=== PATIENT | female | born 1975 | race Caucasian/White ===

== ENCOUNTER 2020-05-14 17:12 | Emergency (ER) | payer OTHER ==
[2020-05-14] MEDS ORDERED: GLUCAGON,HUMAN RECOMB 1 MG INJ SUBCUT ONE (17:34)
--- NOTE | 2020-05-14 17:37 | ER Document Report ---
ED Medical Screen (RME) - General Chief Complaint: Difficulty Swallowing Stated Complaint: FOOD STUCK IN THROAT Time Seen by Provider: 05/14/20 17:29 Notes: Patient is a 44-year-old female who presents to the emergency department with a chief complaint of feeling like a piece of ham is stuck in her throat. She is unsure of whether or not she inhaled a piece of ham or it is stuck in her esophagus. This happened about 3 hours ago. States that she just keeps coughing. Has been able to keep some food down, but still feels like it is "stuck." Exam: Lung sounds clear throughout all lung tellez. We will start with glucagon and sipping diet Pepsi to help possibly get down the piece of ham. I have greeted and performed a rapid initial assessment of this patient. A comprehensive ED assessment and evaluation of the patient, analysis of test results and completion of medical decision making process will be conducted by an additional ED providers. - Related Data Allergies/Adverse Reactions: acetaminophen [From Percocet] Allergy (Verified 05/14/20 17:29) oxycodone [From Percocet] Allergy (Verified 05/14/20 17:29) Physical Exam - Vital signs Vitals: Temp Pulse Resp BP Pulse Ox 98.4 F 86 20 141/94 H 100 05/14/20 17:17 05/14/20 17:17 05/14/20 17:17 05/14/20 17:17 05/14/20 17:17 Course - Vital Signs Vital signs: Temp Pulse Resp BP Pulse Ox 98.4 F 86 20 141/94 H 100 05/14/20 17:17 05/14/20 17:17 05/14/20 17:17 05/14/20 17:17 05/14/20 17:17
--- NOTE | 2020-05-14 18:03 | RADIOLOGY REPORT (SQ) ---
EXAM DESCRIPTION: CHEST 2 VIEWS IMAGES COMPLETED DATE/TIME: 05/14/2020 5:55 pm REASON FOR STUDY: possibly inhaled a piece of ham COMPARISON: None. EXAM PARAMETERS: NUMBER OF VIEWS: two views TECHNIQUE: Digital Frontal and Lateral radiographic views of the chest acquired. RADIATION DOSE: NA LIMITATIONS: none FINDINGS: LUNGS AND PLEURA: No opacities, masses or pneumothorax. No pleural effusion. MEDIASTINUM AND HILAR STRUCTURES: No masses or contour abnormalities. HEART AND VASCULAR STRUCTURES: Heart normal size. No evidence for failure. BONES: No acute findings. HARDWARE: None in the chest. OTHER: No radiopaque foreign object. IMPRESSION: NO ACUTE RADIOGRAPHIC FINDING IN THE CHEST. NO RADIOPAQUE FOREIGN OBJECT. TECHNICAL DOCUMENTATION: JOB ID: [id number] 2010 [employer]- All Rights Reserved Reading location - IP/workstation name: [email or web address]
[2020-05-14 20:48] VITALS: BP 151/90
--- NOTE | 2020-05-14 21:06 | ER Document Report ---
ED ENT - General Chief Complaint: Shortness Of Breath Stated Complaint: FOOD STUCK IN THROAT Time Seen by Provider: 05/14/20 17:29 Primary Care Provider: [facility] [Provider Group] - Follow up as needed [facility] [Provider Group] - Follow up as needed [facility] [Provider Group] - Follow up as needed [facility] [Provider Group] - Follow up as needed SALLY ALVES MD [ACTIVE STAFF] - Follow up as needed Mode of Arrival: Ambulatory Information source: Patient Notes: 44-year-old female presented to ED for complaint of a piece of ham stuck in her throat. She states she was unsure whether the hand was still stuck in her esophagus when she first came in. She stated this happened 3 hours before coming into the emergency room. She was treated with glucagon and Diet Coke before I examined her. She states she no longer felt like the meat was stuck in her throat. She was able to eat crackers and drink juice before discharge. I did go over all the risk for aspiration. I did instruct her that she really needed to follow-up with her senior data mining analyst to find out why she was choking on her meat. Constitutional: Negative for fever. HENT: See above HPI. She states she did have ham stuck in her throat but she no longer had she was able to swallow food and fluids with no difficulty Eyes: Negative for visual changes. Cardiovascular: Negative for chest pain. Respiratory: Negative for shortness of breath. Gastrointestinal: Negative for abdominal pain, vomiting or diarrhea. Genitourinary: Negative for dysuria. Musculoskeletal: Negative for back pain. Skin: Negative for rash. Neurological: Negative for headaches, weakness or numbness. 10 point ROS negative except as marked above and in HPI. VITAL SIGNS: Within normal limits. GENERAL: No acute distress, non-toxic appearance. HEAD: Normal with no signs of head trauma. EYES: PERRLA, EOMI, conjunctiva normal, no discharge. EARS: Hearing grossly intact. NOSE: Normal. THROAT: Oropharynx is normal. NECK: Normal range of motion, no tenderness, supple, no lymphadenopathy, No adenopathy, no JVD. CHEST: Clear breath sounds bilaterally. No wheezes, rales, or rhonchi. CARDIAC: Regular rate and rhythm. S1 and S2, without murmurs, gallops, or rubs. VASCULAR: No Edema. Peripheral pulses normal and equal in all extremities. ABDOMEN: Normal and soft with no tenderness, no masses or pulsatile masses. GASTROINTESTINAL: Bowel sounds normal GENITOURINARY: Normal, No tenderness LYMPATHTIC: No lymphadenopathy noted. MUSCULOSKELETAL: Good range of motion of all major joints. Extremities without clubbing, cyanosis or edema. NEUROLOGICAL: Alert and oriented x 3. No focal sensory or strength deficits. Speech normal. Follows commands appropriately. PSYCHIATRIC: Normal Affect, judgement and mood. SKIN: Normal appearance with no rashes or lesions. - HPI Patient complains to provider of: Other - States she had food stuck in her throat earlier Onset: This evening Onset/Duration: Gone Severity: None Pain Level: Denies Associated symptoms: Sore throat Similar symptoms previously: No Recently seen / treated by doctor: No - Related Data Allergies/Adverse Reactions: acetaminophen [From Percocet] Allergy (Verified 05/14/20 17:29) oxycodone [From Percocet] Allergy (Verified 05/14/20 17:29) Past Medical History - General Information source: Patient - Social History Smoking Status: Current Every Day Smoker Cigarette use (# per day): Yes - Once again a day Smoking Education Provided: Yes - 2 minutes Frequency of alcohol use: None Drug Abuse: Marijuana Family History: Reviewed & Not Pertinent Patient has suicidal ideation: No Patient has homicidal ideation: No - Past Medical History Cardiac Medical History: Reports: None Pulmonary Medical History: Reports: Hx Asthma, Hx Bronchitis, Hx Pneumonia EENT Medical History: Reports: None Neurological Medical History: Reports: Hx Migraine Endocrine Medical History: Reports: None Renal/ Medical History: Reports: Hx Kidney Stones Malignancy Medical History: Reports: None GI Medical History: Reports: Hx Gastroesophageal Reflux Disease, Hx Hiatal Hernia, Hx Ulcer Musculoskeletal Medical History: Reports Hx Arthritis, Reports Hx Musculoskeletal Deformity, Reports Hx Musculoskeletal Trauma Skin Medical History: Reports None Psychiatric Medical History: Reports: Hx Anxiety, Hx Depression Traumatic Medical History: Reports: Hx Fractures - Both arms both legs hands fingers and toes Infectious Medical History: Reports: None Past Surgical History: Reports: Hx Cardiac Surgery, Hx Gynecologic Surgery, Hx Hysterectomy, Hx Kidney (Renal Surgery) - kidney stones, Hx Open Heart Surgery, Hx Oral Surgery, Hx Orthopedic Surgery - Left leg back, Hx Tubal Ligation - Immunizations Immunizations up to date: Yes Hx Diphtheria, Pertussis, Tetanus Vaccination: Yes Physical Exam - Vital signs Vitals: Temp Pulse Resp BP Pulse Ox 98.4 F 86 20 141/94 H 100 05/14/20 17:17 05/14/20 17:17 05/14/20 17:17 05/14/20 17:17 05/14/20 17:17 Course - Vital Signs Vital signs: Temp Pulse Resp BP Pulse Ox 97.4 F 71 15 151/90 H 100 05/14/20 20:47 05/14/20 20:47 05/14/20 20:47 05/14/20 20:47 05/14/20 20:47 - Laboratory Results Critical Laboratory Results Reviewed: No Critical Results - Radiology Results Critical Radiology Results Reviewed: No Critical Results Discharge - Discharge Clinical Impression: Food bolus passed Condition: Stable Disposition: HOME, SELF-CARE Additional Instructions: You were seen today for a food bolus in your esophagus. You were able to pass it after receiving glucagon and drinking Pepsi As of instructed you please in the future if you have a fluid bolus while you are still able to swallow and speak try using Diet Coke or Coke to relieve this food bolus. It is important that you follow-up with the senior data mining analyst to determine why you had the full bolus stuck in your throat. They can do an endoscopy to look down your throat and see what happened. You are able to eat crackers and drink sodas at this time. I have showed you a picture of your x-rays and your lungs are clear. You do have a negative assessment at this time. You state you feeling much better and we will discharge you home. FOLLOW-UP CARE: If you have been referred to a physician for follow-up care, call the physicians office for an appointment as you were instructed or within the next two days. If you experience worsening or a significant change in your symptoms, notify the physician immediately or return to the Emergency Department at any time for re-evaluation. Forms: Smoking Cessation Education, Elevated Blood Pressure Referrals: SALLY ALVES MD [ACTIVE STAFF] - Follow up as needed [facility] [Provider Group] - Follow up as needed [facility] [Provider Group] - Follow up as needed [facility] [Provider Group] - Follow up as needed [facility] [Provider Group] - Follow up as needed
== END 2020-05-14 21:13 | disposition home or self-care (01) ==
LOC: ER 17:12
DX: T18.128A Food in esophagus causing other injury, initial encounter (principal); R06.02 Shortness of breath; R09.89 Other specified symptoms and signs involving the circulatory and respiratory systems; Z88.8 Allergy status to other drugs, medicaments and biological substances; F17.210 Nicotine dependence, cigarettes, uncomplicated; J45.909 Unspecified asthma, uncomplicated; X58.XXXA Exposure to other specified factors, initial encounter
CPT/HCPCS: 99284; 96372; 71046; J1610